=== PATIENT | female | born 1945 | race Hispanic/Latino ===

== ENCOUNTER 2019-03-21 06:14 | Observation (INO) | payer MEDICARE, OTHER ==
[2019-03-21 07:16] LABS: Basophils # (Auto) 0.1 K/mm3 (0.0-0.1); Basophils % (Auto) 1.4 % (0.0-1.8); Eosinophils # (Auto) 0.3 K/mm3 (0.0-0.4); Eosinophils % (Auto) 4.6 % (0.0-4.3); Hematocrit 39.3 % (30.3-42.9); Hemoglobin 13.1 gm/dl (10.1-14.3); Lymphocytes # (Auto) 1.8 K/mm3 (1.2-5.4); Lymphocytes % (Auto) 30.2 % (13.4-35.0); Mean Corpuscular HGB Conc 33 % (30-34); Mean Corpuscular Volume 90 fl (79-97); Monocytes # (Auto) 0.5 K/mm3 (0.0-0.8); Monocytes % (Auto) 7.8 % (0.0-7.3); Platelet Count 200 K/mm3 (140-440); Red Blood Count 4.39 M/mm3 (3.65-5.03); Red Cell Distribution Width 13.6 % (13.2-15.2)
[2019-03-21] MEDS: SODIUM CHLORIDE 0.9% 500 ML 500 ML IV SCH ×2 (07:24→11:33)
[2019-03-21 07:25] LABS: INR 0.98 (0.87-1.13); Partial Thromboplastin Time 28.6 Sec. (24.2-36.6)
[2019-03-21 07:33] LABS: BUN/Creatinine Ratio 27; Blood Urea Nitrogen 16 mg/dL (7-17); Calcium 10.1 mg/dL (8.4-10.2); Hemolysis Index 9
[2019-03-21] MEDS ORDERED: HEPARIN/NS 5000 UNIT/500ML 1,000 ML IR ONE (10:14)
[2019-03-21] MEDS: fentaNYL 100 MCG/2 ML INJ ONE ×2 (10:32→10:56)
[2019-03-21] MEDS: MIDAZOLAM 2 MG/2 ML INJ ONE ×2 (10:33→10:56)
[2019-03-21] MEDS: VERAPAMIL 5 MG/2 ML INJ ONE ×2 (10:33→11:03)
[2019-03-21] MEDS: LIDOCAINE (2%) 20 MG/1 ML VIAL 20 ML MDV INFILTRATI ONE ×2 (10:33→11:01)
[2019-03-21] MEDS: HEPARIN 10,000 UNITS/10 ML VIAL ONE ×4 (10:33→11:35)
[2019-03-21] MEDS: NITROGLYCERIN SYRINGE 3 ML ONE ×2 (10:36→11:03)
[2019-03-21] MEDS ORDERED: NITROGLYCERIN SYRINGE 3 ML ONE (11:33)
[2019-03-21] MEDS ORDERED: HEPARIN 10,000 UNITS/10 ML VIAL ONE (11:36)
[2019-03-21] MEDS ORDERED: TICAGRELOR 90 MG TAB ONE (11:43)
[2019-03-21] MEDS ORDERED: ALUM-MAG HYDROXIDE-SIMETHICONE 200-200-20MG/5ML ORAL LIQD 30 ML ONE (11:43)
--- NOTE | 2019-03-21 12:16 | Cardiac Catherization Report ---
CARDIAC CATHETERIZATION AND CORONARY ANGIOPLASTY REPORT REASON FOR PROCEDURE: The patient is a 73-year-old woman with coronary artery disease and a remote LAD stent. Due to recurrent unstable angina and abnormal thallium stress test, she was referred for outpatient cardiac catheterization. PROCEDURES: 1. Left heart catheterization. 2. Selective left and right coronary angiography. 3. Left ventricular angiography. 4. Coronary angioplasty and stenting of the left anterior descending artery. 5. Sedation time, start 10:56 and end 11:34. DESCRIPTION OF PROCEDURE: The patient was prepped and draped in a sterile fashion after informed consent. The right radial cath site was prepped and draped after a negative Rafa's test. The right radial artery was entered using Seldinger technique followed by placement of a 6-Kenyan hydrophilic sheath. Routine radial cocktail was administered via the sheath. Selective left and right coronary angiography was performed using a #3.5 left Beth and a #4 right Beth. The right Beth was used for left ventricle angiography. The angiograms were reviewed. CORONARY ANGIOGRAPHY: Left main coronary artery was free of significant disease. The left anterior descending artery contained a stent in its mid segment. There was severe diffuse in-stent restenosis of the mid LAD stent. There was up to 80-90% stenosis within this segment. More distally, there was a 50-60% stenosis of the distal, apical segment of the LAD. The circumflex artery and its obtuse marginal branches contained diffuse mild atherosclerosis. The right coronary artery was dominant. This vessel contained a 50% stenosis of its distal AV groove segment, midway between the acute margin and the origin of the right posterior descending branch. There was well preserved left ventricular systolic function, ejection fraction 55%. CORONARY ANGIOPLASTY: After review of the angiograms, ad hoc coronary intervention to the mid LAD in-stent restenosis was recommended. We selected a #2 left Amplatz guiding catheter and advanced to the left coronary ostium. A 0.014-inch Contribution Solicitor 50 guidewire was then introduced, directed into the LAD and across the lesional segment. Following wire placement, a 3.0 mm balloon catheter was used to predilate the severe in-stent restenosis of the mid LAD. We then deployed a single, 3.0 x 30 mm drug-eluting stent, covering the entire lesional segment. The stent was deployed to optimal pressures. Following stenting, there was an excellent angiographic result, 0 residual stenosis and CARLOS 3 flow was maintained down the vessel. No intervention was done to the distal LAD stenosis. Procedure was well tolerated by the patient and there were no complications. The wires and the catheters were removed, sheath removed, and hemostasis achieved using a TR band. CONCLUSION: 1. Coronary artery disease with severe in-stent restenosis of the mid left anterior descending artery stent. 2. Well preserved left ventricular systolic function, ejection fraction 55%. 3. Successful ad hoc angioplasty and stenting of the mid left anterior descending, with deployment of a 3.0 x 30 mm drug-eluting stent. 4. Nonobstructive disease of the distal LAD and the distal right coronary artery will be managed conservatively. JOB# [id number] JERO/ISABEL
--- NOTE | 2019-03-21 12:26 | Event Note ---
Date: 03/21/19 Patient underwent outpatient cardiac catheterization, we found severe diffuse in-stent restenosis of the mid LAD. Successful ad hoc angioplasty and stenting, with excellent angiographic result after implantation of a new 3.0 x 30 mm drug- eluting stent. The patient will be admitted for overnight observation, and started on Brilinta 90 mg twice a day.
[2019-03-21] MEDS ORDERED: SENNOSIDES 8.6 MG TAB PO PRN (12:27)
[2019-03-21] MEDS ORDERED: ACETAMINOPHEN 325 MG TAB PO PRN (12:27)
[2019-03-21] MEDS ORDERED: traMADol 50 MG TAB PO PRN (12:27)
[2019-03-21] MEDS ORDERED: ONDANSETRON 4 MG/2 ML INJ IV PRN (12:27)
[2019-03-21] MEDS ORDERED: ZOLPIDEM 5 MG TAB PO PRN (12:27)
[2019-03-21] MEDS ORDERED: HYDROCHLOROTHIAZIDE PO SCH (12:30)
[2019-03-21] MEDS ORDERED: VALSARTAN PO SCH (12:30)
[2019-03-21] MEDS ORDERED: [UNRECOGNIZED DRUG - OTHER] PO SCH (12:30)
[2019-03-21] MEDS ORDERED: SODIUM CHLORIDE 0.9% 1000 ML 1,000 ML IV SCH (12:30)
[2019-03-21] MEDS ORDERED: SODIUM CHLORIDE 0.9% 1000 ML 1,000 ML ONE (14:51)
[2019-03-21] MEDS: VALSARTAN 160MG TAB PO SCH (15:33)
[2019-03-21] MEDS: hydroCHLOROthiazide 25 MG TAB PO SCH (15:33)
[2019-03-21] MEDS: METOPROLOL TARTRATE 100 MG TAB PO SCH (21:29)
[2019-03-21] MEDS: TICAGRELOR 90 MG TAB PO SCH (21:29)
[2019-03-22 05:08] LABS: Basophils # (Auto) 0.1 K/mm3 (0.0-0.1); Basophils % (Auto) 1.1 % (0.0-1.8); Eosinophils # (Auto) 0.2 K/mm3 (0.0-0.4); Eosinophils % (Auto) 3.7 % (0.0-4.3); Hematocrit 31.7 % (30.3-42.9); Hemoglobin 11.1 gm/dl (10.1-14.3); Lymphocytes # (Auto) 1.6 K/mm3 (1.2-5.4); Lymphocytes % (Auto) 24.1 % (13.4-35.0); Mean Corpuscular HGB Conc 35 % (30-34); Mean Corpuscular Volume 88 fl (79-97); Monocytes # (Auto) 0.5 K/mm3 (0.0-0.8); Monocytes % (Auto) 8.1 % (0.0-7.3); Platelet Count 179 K/mm3 (140-440); Red Blood Count 3.58 M/mm3 (3.65-5.03); Red Cell Distribution Width 13.3 % (13.2-15.2)
[2019-03-22 05:22] LABS: BUN/Creatinine Ratio 22; Blood Urea Nitrogen 11 mg/dL (7-17); Calcium 9.3 mg/dL (8.4-10.2); Creatine Kinase MB 1.4 ng/mL (0.0-4.0); Hemolysis Index 22
--- NOTE | 2019-03-22 08:11 | XRay Report ---
CHEST 1 VIEW INDICATION: post pci. COMPARISON: None FINDINGS: Support devices: None. Heart: Within normal limits. Lungs/Pleura: No acute air space or interstitial disease. Additional findings: None. IMPRESSION: No acute findings. Signer Name: Kayode Mendez Jr, MD Signed: 03/22/2019 8:07 AM Workstation Name: [id number]
[2019-03-22] MEDS: TICAGRELOR 90 MG TAB PO SCH (09:25)
[2019-03-22] MEDS: hydroCHLOROthiazide 25 MG TAB PO SCH (09:25)
[2019-03-22] MEDS: VALSARTAN 160MG TAB PO SCH (09:25)
[2019-03-22] MEDS: METOPROLOL TARTRATE 100 MG TAB PO SCH (09:25)
[2019-03-22] MEDS ORDERED: NON-FORMULARY EACH (Rosuvastatin Calcium [Rosuvastatin Calcium] 10 MG) PO SCH (10:00)
[2019-03-22] MEDS ORDERED: ASPIRIN 81 MG TAB CHEW PO SCH (10:00)
[2019-03-22] MEDS ORDERED: CLOPIDOGREL 75 MG TAB PO SCH (10:00)
--- NOTE | 2019-03-22 10:01 | Short Stay Summary ---
Short Stay Documentation Date of service: 03/22/19 - History H&P: obtained from office - Allergies and Medications Current Medications: Allergies atorvastatin [From Lipitor] Adverse Reaction (Verified 03/21/19 06:56) Unknown elevated liver enzymes ezetimibe [From Zetia] Adverse Reaction (Verified 03/21/19 06:57) Unknown elevated liver ensymes povidone-iodine [From Betadine] Adverse Reaction (Verified 03/21/19 06:55) Itching simvastatin Adverse Reaction (Verified 03/21/19 06:57) Unknown elevated enzymes soap [From Betadine] Adverse Reaction (Verified 03/21/19 06:55) Itching Home Medications Medication Instructions Recorded Confirmed Last Taken Type Aspirin EC 325 mg PO QDAY 03/21/19 03/21/19 03/20/19 History ISOSORBIDE MONOnitrate [Imdur ER] 30 mg PO DAILY 03/21/19 03/21/19 Unknown History Metoprolol Tartrate [Lopressor] 50 mg PO BID 03/21/19 03/21/19 03/20/19 History Mv,Deandre,Min/Iron/Folic Acid/Lut 1 each PO DAILY 03/21/19 03/21/19 03/20/19 History [Complete Multi Tablet] Rosuvastatin Calcium 10 mg PO DAILY 03/21/19 03/21/19 03/20/19 History Valsartan/Hydrochlorothiazide 1 each PO DAILY 03/21/19 03/21/19 03/20/19 History [Valsartan-Hctz 160-25 mg Tab] Active Medications Acetaminophen (Tylenol) 650 mg PO Q4H PRN PRN Reason: Pain MILD(1-3)/Fever >100.5/PARRISH Aspirin (Baby Aspirin) 81 mg PO QDAY [facility] Last Admin: 03/22/19 09:25 Dose: 81 mg Documented by: Hydrochlorothiazide (Hctz) 25 mg PO QDAY [facility] Last Admin: 03/22/19 09:25 Dose: 25 mg Documented by: Isosorbide Mononitrate (Imdur) 30 mg PO DAILY [facility] Last Admin: 03/22/19 09:25 Dose: 30 mg Documented by: Metoprolol Tartrate (Metoprolol) 50 mg PO BID [facility] Last Admin: 03/22/19 09:25 Dose: 50 mg Documented by: Miscellaneous Medication (Rosuvastatin Calcium [Rosuvastatin Calcium]) 10 mg PO DAILY [facility] Ondansetron HCl (Zofran) 4 mg IV Q8H PRN PRN Reason: N/V unrelieved by Reglan Potassium Chloride (K-Dur) 80 meq PO ONCE ONE Stop: 03/22/19 10:01 Senna (Senokot) 8.6 mg PO Q12H PRN PRN Reason: Laxative Effect Ticagrelor (Brilinta) 90 mg PO BID [facility] Last Admin: 03/22/19 09:25 Dose: 90 mg Documented by: Tramadol HCl (Ultram) 50 mg PO Q4H PRN PRN Reason: Pain, Mild (1-3) Valsartan (Diovan) 160 mg PO QDAY [facility] Last Admin: 03/22/19 09:25 Dose: 160 mg Documented by: Zolpidem Tartrate (Ambien) 5 mg PO QHS PRN PRN Reason: Sleep - Physical exam General appearance: no acute distress HEENT: PERRLA Lungs: Clear to auscultation Heart: Regular rate, Normal S1, Normal S2 - Brief post op/procedure progress note Procedure: outpatient cardiac catheterization showed severe diffuse in-stent restenosis of the mid LAD. Successful ad hoc angioplasty and stenting, with excellent angiographic result after implantation of a new 3.0 x 30 mm drug-eluting stent. Condition: stable - Hospital course Hospital course: Patient is post PCI of in-stent restenosis of the mid LAD using drug eluting stent and started on Brilinta 90 mg twice a day with a low dose aspirin. She denies chest pain and shortness of breath. Stable overnight observation. Morning labs shows hypokalemia with a potassium of 3.1. She takes Valsartan/HCTZ for hypertension management. HCTZ will be discontinued and instead, we will use Amlodipine 5mg daily in addition to Valsartan for hypertension management. Her potassium has been replaced and on recheck she has a potassium of 4.1. Patient is stable for discharge home today with outpatient follow up with her primary senior accountant as scheduled. - Disposition Condition at discharge: Good Disposition: [id number] TO HOME OR SELFCARE Short Stay Discharge Plan Activity: advance as tolerated Diet: low fat, low cholesterol, low salt Follow up with: SUREKHA OLIVARES MD [Primary Care Provider] - 7 Days FANI JOSUE MD [Staff Physician] - 7 Days Forms: [facility] PCI D/C Instructions Prescriptions: Aspirin [Aspirin BABY CHEW TAB] 81 mg PO QDAY #30 tab.chew Ticagrelor [Brilinta] 90 mg PO BID #60 tablet Valsartan [Diovan] 160 mg PO QDAY #30 tablet Amlodipine Besylate [Norvasc] 5 mg PO QDAY #30 tablet
[2019-03-22] MEDS ORDERED: POTASSIUM CHLORIDE ER 20 MEQ TAB PO ONE (11:00)
[2019-03-22 14:00] VITALS: BP 103/71
== END 2019-03-22 15:27 | disposition home or self-care (01) ==
LOC: CATHLABREC 06:14 → 4A 12:27
PROVIDERS: ADMIT Internal Medicine Cardiovascular Disease; ATTEND Internal Medicine Cardiovascular Disease
DX: I25.10 Atherosclerotic heart disease of native coronary artery without angina pectoris (principal); R94.31 Abnormal electrocardiogram [ECG] [EKG]; Z98.61 Coronary angioplasty status; Z79.82 Long term (current) use of aspirin
CPT/HCPCS: 36415; 71045; 80048; 82550; 82553; 84132; 84484; 85025; 85347; 85610; 85730; 93005; 93010; 93458; C1725; C1769; C1874; C1887; C1894; C9600; G0378; J1644; J2250; J3010; J7030; J7040; 92928; Q9967